=== PATIENT | female | born 1970 | race Two or more races ===

== ENCOUNTER 2022-03-16 04:35 | Day surgery (SDC) | payer OTHER ==
[2022-03-10 10:02] VITALS: BMI 19.9
[2022-03-16 10:31] VITALS: TEMP 96.2
[2022-03-16 11:05] VITALS: BP 103/65; PULSE 52
== END 2022-03-16 11:15 | disposition home or self-care (01) ==
LOC: JASU-ENDO 04:35
PROVIDERS: ATTEND Internal Medicine Gastroenterology
PROC: 0DBP8ZX Excision of Rectum, Via Natural or Artificial Opening Endoscopic, Diagnostic (ICD-10-PCS; principal; 2022-03-16 09:00)
DX: Z12.11 Encounter for screening for malignant neoplasm of colon (principal); K63.89 Other specified diseases of intestine; K64.8 Other hemorrhoids; K62.1 Rectal polyp
CPT/HCPCS: 88305-TC